=== PATIENT | male | born 1975 | race Caucasian/White ===

== ENCOUNTER 2016-06-04 18:16 | Emergency (ER) | payer BC, MEDICAID ==
[2016-06-04] MEDS ORDERED: Aspirin Low Dose CHEW TAB* 81 MG PO ONE (19:04)
--- NOTE | 2016-06-04 19:47 | RAD ---
INDICATION: Chest pain COMPARISON: None TECHNIQUE: PA and lateral dual-energy views were obtained. FINDINGS: Bones/Soft Tissues: There are no acute bony findings. Cardiomediastinal: The cardiomediastinal silhouette is normal. Lungs: There are no infiltrates. Pleura: There are no pleural effusions. Other: None IMPRESSION: NO ACTIVE DISEASE.
[2016-06-04 20:27] VITALS: BP 130/98
[2016-06-04 20:38] LABS: Hematocrit 45 % (42-52); Mean Corpuscular HGB Conc 33 g/dl (31-36); Mean Corpuscular Hemoglobin 31 pg (27-31); Mean Corpuscular Volume 94 fL (80-94); Mean Platelet Volume 7 um3 (7.4-10.4); Red Blood Count 4.83 10^6/ul (4.0-5.4); Red Cell Distribution Width 14 % (10.5-15); White Blood Count 10.3 10^3/ul (3.5-10.8)
[2016-06-04 20:54] LABS: Albumin 4.6 g/dL (3.2-5.2); BUN/Creatinine Ratio 15.6 (8-20); EGFR African American 143.9 (>60); EGFR Non-African American 111.9 (>60); Globulin 3.2 g/dL (2-4); Potassium 4.2 mmol/L (3.5-5.0); Total Bilirubin 0.3 mg/dL (0.2-1.0); Total Protein 7.8 g/dL (6.4-8.9)
[2016-06-04 20:55] LABS: Troponin I 0.01 ng/mL (<0.04)
[2016-06-04 21:58] LABS: Calcium 9.6 mg/dL (8.6-10.3)
== END 2016-06-04 21:07 | disposition left against medical advice (07) ==
LOC: ED 18:16
DX: R07.9 Chest pain, unspecified (principal); Z53.21 Procedure and treatment not carried out due to patient leaving prior to being seen by health care provider
CPT/HCPCS: 36415; 71020; 80053; 84484; 85025; 93005; 99281

== ENCOUNTER 2016-10-27 01:43 | Emergency (ER) | payer BC ==
[2016-10-27 02:27] LABS: Hematocrit 43 % (42-52); Hemoglobin 14.5 g/dl (14.0-18.0); Mean Corpuscular HGB Conc 34 g/dl (31-36); Mean Corpuscular Hemoglobin 31 pg (27-31); Mean Corpuscular Volume 94 fL (80-94); Mean Platelet Volume 7 um3 (7.4-10.4); Red Blood Count 4.62 10^6/ul (4.0-5.4); Red Cell Distribution Width 15 % (10.5-15); White Blood Count 9.5 10^3/ul (3.5-10.8)
[2016-10-27 02:30] LABS: Albumin 4.6 g/dL (3.2-5.2); BUN/Creatinine Ratio 13.9 (8-20); Calcium 9.3 mg/dL (8.6-10.3); EGFR African American 139.7 (>60); EGFR Non-African American 108.6 (>60); Globulin 3.1 g/dL (2-4); Potassium 3.4 mmol/L (3.5-5.0); Total Bilirubin 1.2 mg/dL (0.2-1.0); Total Protein 7.7 g/dL (6.4-8.9)
[2016-10-27 02:42] LABS: TSH (Thyroid Stimulating Horm) 17.58 mcIU/mL (0.34-5.60)
[2016-10-27 02:47] LABS: Free T3 3.2 pg/mL (2.5-3.9)
[2016-10-27 02:48] LABS: Free T4 0.62 ng/dL (0.61-1.12)
[2016-10-27 02:51] LABS: Total T3 0.77 ng/mL (0.87-1.78)
[2016-10-27] MEDS ORDERED: LORazepam TAB(*) 1 MG PO ONE (03:01)
[2016-10-27 03:43] VITALS: BP 108/68
--- NOTE | 2016-11-04 19:38 | ED ---
Toby Meza Aidan, scribed for Alba Rice MD on 10/27/16 at 0311 . Complex/Multi-Sys Presentation - HPI Summary HPI Summary: 41 y/o male presents to the ED with a complaint of acute, moderate episodes of abnormally high energy and anxiety that began just after he was placed on a new thyroid medication. Hx of hypothyroidism and other thyroid problems. His increased energy was bad enough to recently prevent him from sleeping at all one night. Hx of graves disease. - History Of Current Complaint Chief Complaint: EDGeneral Time Seen by Provider: 10/27/16 02:05 Hx Obtained From: Patient Onset/Duration: Sudden Onset, Lasting Hours, Still Present Timing: Constant - constant hypothyroidism, Intermittent, Lasting: - intermittent episodes of increased energy and anxiety Severity Currently: Moderate Severity Initially: Moderate Location: Negative Aggravating Factor(s): new thyroid medication likely causes his increased energy and anxiety Alleviating Factor(s): unknown Associated Signs And Symptoms: Positive: Other - hypothyroidism, episodes of increased anxiety and energy Related History: Recent Hospitalization - for hypothyroidism - Allergies/Home Medications Allergies/Adverse Reactions: Allergies Allergy/AdvReac Type Severity Reaction Status Date / Time No Known Allergies Allergy Verified 10/27/16 02:05 PMH/Surg Hx/FS Hx/Imm Hx Previously Healthy: No - Hx of hypothyroidism and graves disease - Immunization History Date of Tetanus Vaccine: unk Date of Influenza Vaccine: none Infectious Disease History: No Infectious Disease History: Denies: Traveled Outside the [place] in Last 30 Days - Family History Known Family History: Positive: Other - thyroid disease - Social History Occupation: Employed Full-time Lives: With Family Alcohol Use: None Substance Use Type: Reports: None Smoking Status (MU): Never Smoked Tobacco Review of Systems Positive: Other - hypothyroidism. Negative: Fever, Chills, Fatigue, Skin Diaphoresis Eyes: Negative ENT: Negative Cardiovascular: Negative Respiratory: Negative Gastrointestinal: Negative Genitourinary: Negative Musculoskeletal: Negative Skin: Negative Neurological: Other - increased energy and anxiety Negative: Headache, Weakness, Paresthesia, Numbness, Syncope, Slurred Speech Psychological: Normal All Other Systems Reviewed And Are Negative: Yes Physical Exam - Summary Physical Exam Summary: General: Well appearing, no pain distress Skin: Warm, Skin Color Reflects Adequate Perfusion, Dry Eyes: EOMI, OSBALDO ENT: Pharynx normal, TMs normal Neck: Supple, nontender Respiratory: CTA, breath sounds present, no rhonchi, no wheezes, no rales Cardiovascular: RRR, no murmur, no rub, no gallop Abdomen: Soft, nontender, Non-distended, no guarding, no rebound Bowel: Present Musculoskeletal: HORACIO, No edema Neuro: Sensory/motor intact, A&Ox3, CN intact 2-12 Psych: Affect/mood appropriate Triage Information Reviewed: Yes Vital Signs On Initial Exam: Initial Vitals Temp 98.4 F 10/27/16 01:47 Vital Signs Reviewed: Yes - Brody Coma Scale Coma Scale Total: 15 Diagnostics - Vital Signs Vital Signs Temp Pulse Resp BP Pulse Ox 10/27/16 01:49 98.2 F 92 18 121/84 100 10/27/16 01:47 98.4 F - Laboratory Lab Results: Lab Results 10/27/16 10/27/16 Range/Units 02:03 02:03 WBC 9.5 (3.5-10.8) 10^3/ul RBC 4.62 (4.0-5.4) 10^6/ul Hgb 14.5 (14.0-18.0) g/dl Hct 43 (42-52) % MCV 94 (80-94) fL MCH 31 (27-31) pg MCHC 34 (31-36) g/dl RDW 15 (10.5-15) % Plt Count 448 (150-450) 10^3/ul MPV 7 L (7.4-10.4) um3 Neut % (Auto) 74.2 (38-83) % Lymph % (Auto) 16.3 L (25-47) % Hopkins % (Auto) 8.3 (1-9) % Eos % (Auto) 0.7 (0-6) % Baso % (Auto) 0.5 (0-2) % Absolute Neuts (auto) 7.0 (1.5-7.7) 10^3/ul Absolute Lymphs (auto) 1.5 (1.0-4.8) 10^3/ul Absolute Monos (auto) 0.8 (0-0.8) 10^3/ul Absolute Eos (auto) 0.1 (0-0.6) 10^3/ul Absolute Basos (auto) 0 (0-0.2) 10^3/ul Absolute Nucleated RBC 0 10^3/ul Nucleated RBC % 0 Sodium 136 (133-145) mmol/L Potassium 3.4 L (3.5-5.0) mmol/L Chloride 104 (101-111) mmol/L Carbon Dioxide 24 (22-32) mmol/L Anion Gap 8 (2-11) mmol/L BUN 11 (6-24) mg/dL Creatinine 0.79 (0.67-1.17) mg/dL Est GFR ( Amer) 139.7 (>60) Est GFR (Non-Af Amer) 108.6 (>60) BUN/Creatinine Ratio 13.9 (8-20) Glucose 108 H (70-100) mg/dL Calcium 9.3 (8.6-10.3) mg/dL Total Bilirubin 1.20 H (0.2-1.0) mg/dL AST 29 (13-39) U/L ALT 37 (7-52) U/L Alkaline Phosphatase 40 (34-104) U/L Total Protein 7.7 (6.4-8.9) g/dL Albumin 4.6 (3.2-5.2) g/dL Globulin 3.1 (2-4) g/dL Albumin/Globulin Ratio 1.5 (1-3) TSH 17.58 H (0.34-5.60) mcIU/mL Free T4 0.62 (0.61-1.12) ng/dL Free T3 3.20 (2.5-3.9) pg/mL Total T3 0.77 L (0.87-1.78) ng/mL Result Diagrams: 10/27/16 02:03 10/27/16 02:03 Lab Statement: Any lab studies that have been ordered have been reviewed, and results considered in the medical decision making process. Complex Multi-Symp Course/Dx - Diagnoses Provider Diagnoses: Hypothyroid Discharge - Discharge Plan Condition: Stable Disposition: HOME Discharge Disposition Comment: Please follow up with your primary care provider within 3 days. Patient Education Materials: Hypothyroidism (ED) Referrals: Tiffany Michael MD [Primary Care Provider] - The documentation as recorded by the Toby whitney Aidan accurately reflects the service I personally performed and the decisions made by me, Alba Rice MD.
== END 2016-10-27 03:41 | disposition home or self-care (01) ==
LOC: ED 01:43
DX: E03.9 Hypothyroidism, unspecified (principal)
CPT/HCPCS: 36415; 80053; 84439; 84443; 84479; 84481; 85025; 99282; A9270-GY